=== PATIENT | male | born 1990 ===

== ENCOUNTER 2022-12-28 20:31 | Emergency (ER) | payer BC ==
[2022-12-28] MEDS ORDERED: Ondansetron 4 MG Tab.DIS PO ONE (20:32)
[2022-12-28] MEDS ORDERED: Ondansetron 4 MG Tab.DIS PO STA (21:19)
[2022-12-28 22:44] LABS: CORONAVIRUS COVID-19 NAA NEGATIVE (NEGATIVE)
== END 2022-12-28 23:19 | disposition home or self-care (01) ==
LOC: FB.ED 20:31
DX: K52.9 Noninfective gastroenteritis and colitis, unspecified (principal); J06.9 Acute upper respiratory infection, unspecified; Z20.822 Contact with and (suspected) exposure to COVID-19
CPT/HCPCS: 0241U; 99282; 99283; Q0162

== ENCOUNTER 2022-12-30 01:55 | Emergency (ER) | payer BC ==
[2022-12-30] MEDS ORDERED: Sodium Chloride 0.9% 1,000 ML IV ONE (02:20)
[2022-12-30] MEDS ORDERED: Ondansetron 4 MG/2 ML SDV ONE (02:33)
[2022-12-30] MEDS ORDERED: Metoclopramide 10 MG/2 ML SDV ONE (02:34)
[2022-12-30 05:42] LABS: ESTIMATED GFR 58 mL/min (>60)
== END 2022-12-30 03:50 | disposition home or self-care (01) ==
LOC: FB.ED 01:55
DX: R11.10 Vomiting, unspecified (principal)
CPT/HCPCS: 36415; 80053; 85025; 96374; 96375; 99284; J2405; J2765; J7030; 99283